=== PATIENT | female | born 1945 | race African-American/Black ===

== ENCOUNTER 2023-02-19 11:15 | Emergency (ER) | payer BC, MEDICARE ==
[~2023-02-19] VITALS: Ht 170.2 cm; Wt 57.4 kg
[2023-02-19 11:18] VITALS: BP 0/0; TEMP 97.1
[2023-02-19 11:20] VITALS: PULSE 192; RESP 16
[2023-02-19 11:28] LABS: BG BASE EXCESS 8.1 mmol/L (-2.0-2.0); BG CARBOXYHEMOGLOBIN 0.2 % (0.5-1.5); BG DEOXYHEMOGLOBIN 0.7 % (0.0-5.0); BG FRACTION INSPIRED OXYGEN 100; BG HCO3 ACT 30.1 mmol/L (22.0-26.0); BG METHEMOGLOBIN 0.5 % (0.0-1.5); BG OXYGEN SATURATION 99.3 % (92.0-98.5); BG OXYHEMOGLOBIN 98.6 % (94.0-97.0); BG PCO2 31.2 mmHg (35.0-45.0); BG PH 7.602 (7.350-7.450); BG PO2 477.8 mmHg (75.0-100.0); BG SAMPLE SITE LEFT BRACHIAL; BG TOTAL HEMOGLOBIN 7.6 g/dL (12.0-18.0); BG VENT MODE RESUS BAG
[2023-02-19] MEDS ORDERED: TENECTEPLASE 50MG/VIAL (FOR MI OR PE) IV ONE (11:45)
[2023-02-19] MEDS ORDERED: TENECTEPLASE 50MG/VIAL (FOR MI OR PE) IV NR (11:45)
[2023-02-19] MEDS ORDERED: DOPAMINE 400MG/250ML PREMIX 250 ML IV ONE (11:45)
== END 2023-02-19 15:18 ==
LOC: ER 11:50 → CANBEDREQ 12:06 → ER 15:18
DX: I21.3 ST elevation (STEMI) myocardial infarction of unspecified site (principal); I46.9 Cardiac arrest, cause unspecified; F03.90 Unspecified dementia, unspecified severity, without behavioral disturbance, psychotic disturbance, mood disturbance, and anxiety; E11.9 Type 2 diabetes mellitus without complications; E78.00 Pure hypercholesterolemia, unspecified
CPT/HCPCS: 99291; 92950 ×2; 31500; 82962; 82805; 82375; 36600; 93005; J2997; J1265; 94002